=== PATIENT | male | born 1990 | race Caucasian/White ===

== ENCOUNTER 2022-10-06 11:35 | Inpatient (IN) | payer SELFPAY ==
[2022-10-06 11:44] VITALS: BP 138/92; PULSE 87; RESP 18; TEMP 36.6; O2SAT 97; BMI 36.6
--- NOTE | 2022-10-06 11:58 | ED_ITS ---
HPI - General Adult General: Chief complaint: Psychiatric Symptoms Stated complaint: homeless Time Seen by Provider: 10/06/22 11:54 Source: patient Mode of arrival: other (police) History of Present Illness: Patient tells me that they broke up with her significant other today. Unfortunately, the patient relies on significant other for assisted and housing in this area. Since they are choosing to exit the relationship, this will leave him homeless. Patient made a statement that if they become homeless they probably will not last very long. The significant other construed this as a suicidal statement. However, the patient tells me that they were indicating that they have no outdoor survival skills and are afraid they would succumb to the elements. Patient tells me that they are not suicidal, homicidal, paranoid. Patient does not want to and has no plan to do so but is afraid of being homeless. Review of Systems General: Reports: 10 or more systems reviewed and unremarkable except in HPI and below Psych: Denies: hopelessness, loss of interest, paranoia, difficulty concentrating, visual hallucinations, auditory hallucinations, tactile hallucinations, suicidal ideation or homicidal ideation Physical Exam Const: COMMON NORMALS: no limitations, alert and well nourished EXAM LIMITATIONS: no altered mental status HENMT: COMMON NORMALS: normocephalic, atraumatic and external ears normal HEAD & SCALP: normocephalic and atraumatic EXTERNAL EAR: Yes external ears normal MOUTH: no muffled voice Eye: COMMON NORMALS: EOMs intact bilaterally and conjunctivae normal CON JUNCTIVA: Yes conjunctivae normal Neck/C-Spine: COMMON NORMALS: no JVD GENERAL: Yes normal visual inspection and Yes trachea midline Resp: COMMON NORMALS: normal respiratory effort, No use of accessory muscles and clear to auscultation bilaterally AUSCULTATION: clear to auscultation bilaterally Cardio: COMMON NORMALS: no JVD Extremity: COMMON NORMALS: normal to inspection Neuro: COMMON NORMALS: moves all extremities, no focal motor deficits and no sensory deficits noted SENSORIUM/ORIENTATION: Yes alert Psych: COMMON NORMALS: mental status grossly normal, Normal thought process present, cooperative, normal affect and speech normal SPEECH: Yes normal speech THOUGHT PROCESS: Normal thought process present Skin: COMMON NORMALS: turgor normal and no jaundice GENERAL SKIN EXAM: turgor normal Course 2 Reevaluation(s): Reevaluation #1: UPDATE 1330: Patient admits that she's been self cutting out of stress--she pulls up her clothing and shows me superficial scratches on her left forearm. She reports she isn't suicidal but isn't in a good place. Sig other states she has OCD thoughts and disabling anxiety. I spoke with Dr. Oquendo who is willing to accept patient for psychiatric screening and treatment if medically cleared---I changed plan from discharge to admit pending and ordered medical screening labs. Vital Signs: Vital signs: Vital Signs Temperature 98 F 10/06/22 11:44 Pulse Rate 87 10/06/22 11:44 Respiratory Rate 18 10/06/22 11:44 Blood Pressure 138/92 10/06/22 11:44 Pulse Oximetry 97 10/06/22 11:44 Oxygen Delivery Me thod 10/06/22 11:44 MDM - General Adult Medical Decision Making Patient reports they are afraid of being homeless but are not suicidal, homicidal, and have no signs of psychosis. The patient is awake, alert, calm, normal thought processes. I offered to help the patient with what ever I could and asked whether they felt they would be better off . The patient does not have even passive suicidal ideation. Therefore, patient is not appropriate for inpatient psychiatry. I have spoken with the rehabilitation caseworker and she is going to work on trying to find the patient assisted at [facility] or another local assisted. Discharge Plan Discharge Patient Disposition: Home Clinical Impression: OCD (obsessive compulsive disorder), Homelessness, Relationship problem between partners, Anxiety and depression, Gender dysphoria, Self-mutilation Condition: Stable Prescriptions: No Action spironolactone 100 mg Tablet 50 mg PO QAM Wellbutrin 75 mg Tablet 37.5 - 75 mg PO DAILY Zoloft 25 mg Tablet 25 mg PO DAILY PRN (Reason: unknown) estradiol 2 mg Tablet 4 mg PO BID hydroxyzine HCl 25 mg Tablet 25 mg PO DAILY PRN (Reason: Panic Attack(S)) Discharge Orders: Discharge ED (Routine); Ordered 10/06/22 Ordered By: Abhi Estrella Referrals: Alan Hackett DO [Physician] - 1 week (Needs primary care.) Discharge Diet: Usual diet Discharge Activity: Resume usual activity Patient Instructions: Opioid Safety, Pain Management, Suicidal Ideation Coding Level of Care Code ED Liberal Arts Teacher for Chg Fwd Exam Comprehensive
--- NOTE | 2022-10-06 12:59 | PC.PHAR ---
pt states takes care of own medications-pt states has zoloft 25mg but doesnt take ext med history shows last filled 08/11/22 30d/s-notes are made in the pharmacy comments
[2022-10-06 13:38] VITALS: BP 129/84; PULSE 80; RESP 18; TEMP 36.9; O2SAT 95
[2022-10-06 14:00] VITALS: BP 129/84; PULSE 80; RESP 18; TEMP 36.9; O2SAT 95
--- NOTE | 2022-10-06 14:00 | ECG_ITS ---
[facility] Test Date: 2022-10-06 Pat Name: mali page Department: Room: Gender: Male Litigation Examiner: : 1990 Requested By: Abhi Estrella Order Number: [id number] Justyna MD: Paula Cain M.D. Measurements Intervals [place] Rate: 75 P: 60 NM: 179 QRS: 33 QRSD: 108 T: 37 QT: 391 QTc: 438 Interpretive Statements SINUS RHYTHM WITH SINUS ARRHYTHMIA No previous ECG available for comparison Electronically Signed On 10-07-2022 14:56:01 INFORMATION SECURITY ASSOCIATE by Paula Cain M.D. [email or web address]
[2022-10-06 14:39] LABS: Basophils # 0.1 10^3/uL (0.0-0.1); Basophils % 0.7 %; Eosinophils # 0.3 10^3/uL (0.0-0.8); Eosinophils % 1.8 %; Hematocrit 44.1 % (42.0-52.0); Hemoglobin 14.3 g/dL (11.7-16.6); Lymphocytes # 3.5 10^3/uL (0.8-4.8); Lymphocytes % 23.2 %; Mean Corpuscular HGB Conc 32.4 g/dL (30.0-36.0); Mean Corpuscular Hemoglobin 28.8 pg (28.0-34.0); Mean Corpuscular Volume 88.9 fl (80-94); Mean Platelet Volume 10.3 fL (7.4-10.4); Monocytes # 1.2 10^3/uL (0.2-0.9); Monocytes % 7.7 %; Neutrophils # 9.99 10^3/uL (1.8-7.7); Neutrophils % 66.3 %; Nucleated Red Blood Cells % 0 %; Platelet Count 295 10^3/cmm (130-400); Red Blood Count 4.96 10^6/uL (4.1-5.3); Red Cell Distribution Width 12.9 % (12.1-15.1); White Blood Count 15.1 10^3/uL (4.0-10.0)
[2022-10-06 14:57] LABS: Acetaminophen < 5.0 ug/mL (10-30); Alanine Aminotransferase 27 U/L (0-41); Albumin Level 3.8 g/dL (3.5-5.2); Alcohol Level < 10 mg/dL (0-10); Alkaline Phosphatase 81 U/L (40-130); Aspartate Amino Transferase 22 U/L (0-40); Blood Urea Nitrogen 8 mg/dL (6-20); Calcium 8.8 mg/dL (8.5-10.5); Carbon Dioxide 24 mmol/L (22-29); Chloride 103 mmol/L (98-107); Globulin 3.9 g/dL (1.3-4.6); Glomerular Filtration Rate 112.8 mL/min (90-130); Glucose 96 mg/dL (65-115); Osmolality Calculated 282 mOsm/kg (285-295); Salicylate < 0.3 mg/dL (3-10); Sodium 137 mmol/L (136-145); Thyroid Stimulating Hormone 1.41 uIU/mL (0.27-4.20); Total Bilirubin 0.4 mg/dL (0.15-1.2); Total Protein 7.7 g/dL (6.6-8.7)
[2022-10-06 18:27] LABS: Add Urine Culture? No; Add Urine Microscopic? YES; Amorphous Sediment Urine 3+ /hpf; Bilirubin Urine Neg (Negative); Blood Urine 2+ (Negative); Glucose Urine UA Norm (Normal); Ketones Urine Negative (Negative); Leukocyte Esterase Urine Negative (Negative); Nitrate Urine Negative (Negative); Protein Urine Neg (Negative); RBC Urine 0-4 /hpf (0-2); Specific Gravity, Urine 1.025 (1.005-1.030); Squamous Epithelial Cell Urine 0-4 /hpf (0-5); Urine Appearance Clear (CLEAR); Urine Color Yellow (Yellow); Urobilinogen Urine Norm (Negative); WBC Urine 0-4 /hpf (0-5); pH Urine 5 (5-7)
[2022-10-06 18:28] LABS: Amphetamines Screen Urine Negative (Negative); Barbiturates Screen Urine Negative (Negative); Benzodiazepines Screen Urine Negative (Negative); Cocaine Screen Urine Negative (Negative); Opiate Screen Urine Negative (Negative); PCP Screen Urine Negative (Negative); THC Screen Urine Positive (Negative)
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
[2022-10-06 20:25] VITALS: BP 147/82; PULSE 71; RESP 17; O2SAT 97
[2022-10-07 06:00] VITALS: BP 135/85; PULSE 74; RESP 16; O2SAT 99
[2022-10-07] MEDS: estradiol 1 mg Tablet 2 MG PO ×2 (09:48→18:49)
[2022-10-07] MEDS: spironolactone 25 mg Tablet 50 MG PO (09:49)
--- NOTE | 2022-10-07 10:30 | PC.NURSE ---
PATIENT DENIES SI/HI AND AVH. PATIENT STATES SHE IS NOT SUICIDAL, BUT THAT SHE FEELS LIKE SHE KNOWS WHEN SHE LEAVES THAT SHE'LL STILL BE HOMELESS AND JUST END UP DYING THAT WAY. THIS RN ASSURED PATIENT WE WOULD FIND ADEQUATE HOUSING FOR PATIENT, BUT PATIENT STATED, I FEEL LIKE EVEN IF I GO TO A HOMELESS ALF I'LL SPEND MY WHOLE LIFE THERE AND THERE.
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
[2022-10-07 14:00] VITALS: BP 133/80; PULSE 70; RESP 18; TEMP 36.7; O2SAT 96
[2022-10-07 20:12] VITALS: BP 120/71; PULSE 65; RESP 18; TEMP 36.8; O2SAT 96
[2022-10-08 06:00] VITALS: BP 140/74; PULSE 66; RESP 17; TEMP 36.7; O2SAT 99
[2022-10-08] MEDS: spironolactone 25 mg Tablet 50 MG PO (08:51)
[2022-10-08] MEDS: estradiol 1 mg Tablet 2 MG PO ×2 (08:51→20:09)
[2022-10-08 14:00] VITALS: BP 134/88; PULSE 90; RESP 18; TEMP 36.6; O2SAT 97
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
[2022-10-08 20:07] VITALS: BP 138/83; PULSE 82; RESP 18; TEMP 36.8; O2SAT 96
[2022-10-09 06:00] VITALS: RESP 18
[2022-10-09] MEDS: estradiol 1 mg Tablet 2 MG PO ×2 (07:44→20:00)
[2022-10-09] MEDS: spironolactone 25 mg Tablet 50 MG PO (07:44)
[2022-10-09] MEDS: BuSPIRONE 10 mg Tablet 15 MG PO ×2 (07:45→18:47)
[2022-10-09] MEDS: buPROPion SR (12 HR) 100 mg Tablet PO (07:45)
[2022-10-09 14:00] VITALS: BP 151/86; PULSE 97; RESP 18; TEMP 36.6; O2SAT 98
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
[2022-10-09 20:07] VITALS: RESP 18
[2022-10-10 06:00] VITALS: RESP 18
[2022-10-10] MEDS: estradiol 1 mg Tablet 2 MG PO (08:18)
[2022-10-10] MEDS: buPROPion SR (12 HR) 100 mg Tablet PO (08:18)
[2022-10-10] MEDS: BuSPIRONE 10 mg Tablet 15 MG PO (08:18)
[2022-10-10] MEDS: spironolactone 25 mg Tablet 50 MG PO (08:18)
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
[2022-10-10 10:01] VITALS: BP 151/86; PULSE 97; RESP 18; TEMP 36.6; O2SAT 98
[2022-10-10] MEDS: calcium carbonate 500 mg Chew Tablet PO (13:18)
== END 2022-10-10 15:22 | disposition home or self-care (01) | DRG 880 ==
LOC: ER 12:14 → NP 14:10
PROVIDERS: Admitting Provider Psychiatry & Neurology Psychiatry; Emergency Provider Emergency Medicine; Visit Provider Psychiatry & Neurology Psychiatry
DX: F41.8 Other specified anxiety disorders (principal); Z63.0 Problems in relationship with spouse or partner; Z59.01 Sheltered homelessness; F12.20 Cannabis dependence, uncomplicated; F42.9 Obsessive-compulsive disorder, unspecified; F64.0 Transsexualism; Z79.890 Hormone replacement therapy
CPT/HCPCS: 36415; 80053; 80306; 80307; 81001; 84443; 85025; 93005; 97150; 97165; 99285; J8499